=== PATIENT | female | born 1980 | race Two or more races ===

== ENCOUNTER 2019-08-11 00:35 | Emergency (ER) | payer OTHER ==
[~2019-08-11] VITALS: Ht 165.1 cm; Wt 63.5 kg
--- NOTE | 2019-08-11 01:48 | NUR ---
PT CAME TO ER BED 16 C/O OF ANXIETY. PT STATES SHE FEELS LIKE SHE IS HAVING A STROKE. STATES THAT SHE FEELS "REALLY SCARED". BOYFRIEND AT BEDSIDE. AAOX4. NO SOB. AWAITING MD REEVES.
[2019-08-11] MEDS ORDERED: LORAZEPAM INJ 2 MG/ML VIAL ONE (01:54)
--- NOTE | 2019-08-11 01:58 | NUR ---
PATIENT REFUSED ALL MEDICATIONS, AND WANTS TO WAIT FOR A LATER TIME FOR BLOOD DRAW. MD AUGUST. PT STILL WANTS TO PROCEED WITH CT SCAN.
[2019-08-11] MEDS ORDERED: IV NS 0.9% 1,000 ML BAG IV ONE ×2 (02:00→05:00)
[2019-08-11] MEDS ORDERED: LORAZEPAM INJ 2 MG/ML VIAL IVP ONE (02:00)
--- NOTE | 2019-08-11 02:15 | NUR ---
PT SIGNED WAIVER FORM.
[2019-08-11] MEDS ORDERED: LORAZEPAM 1 MG TABLET ONE (02:41)
[2019-08-11] MEDS ORDERED: LORAZEPAM 1 MG TABLET PO ONE (03:00)
[2019-08-11 04:33] LABS: BASOPHILS % (AUTO) 0.3 % (0.0-2.0); HEMATOCRIT 37 % (33-45); HEMOGLOBIN 12.6 g/dL (11.5-14.8); LYMPHOCYTES # (AUTO) 0.9 /CMM (0.8-4.8); LYMPHOCYTES % (AUTO) 11.6 % (20.0-44.0); MEAN CORPUSCULAR HGB CONC 34 g/dl (31.0-36.0); MEAN CORPUSCULAR VOLUME 90 fL (82-100); MONOCYTES # (AUTO) 0.4 /CMM (0.1-1.30); MONOCYTES % (AUTO) 4.9 % (2.0-12.0); NEUTROPHILS # (AUTO) 6.4 /CMM (1.8-8.9); NEUTROPHILS % (AUTO) 83.2 % (43.0-81.0); PLATELET COUNT (AUTO) 285 /CMM (150-450); RED BLOOD CELL COUNT(AUTO) 4.13 MIL/uL (4.0-5.2); WHITE BLOOD COUNT (AUTO) 7.7 K/uL (4.3-11.0)
[2019-08-11 04:43] LABS: ALCOHOL, BLOOD < 3 mg/dL (0-0); MAGNESIUM 2.2 mg/dL (1.8-2.4)
[2019-08-11 04:48] LABS: ALANINE AMINOTRANSFERASE 23 U/L (12-78); ALBUMIN 4.4 g/dL (3.4-5.0); ALKALINE PHOSPHATASE 55 U/L (46-116); ASPARTATE AMINOTRANSFERASE 15 U/L (15-37); BILIRUBIN,DIRECT 0.1 mg/dL (0.0-0.2); BILIRUBIN,TOTAL 0.4 mg/dL (0.2-1.0); CALCIUM, SERUM 9.2 mg/dL (8.5-10.1); CARBON DIOXIDE 27 mmol/L (21-32); CHLORIDE 104 mmol/L (98-107); CREATININE 0.9 mg/dL (0.6-1.3); GLUCOSE 148 mg/dL (74-106); SODIUM SERUM 140 mmol/L (136-145); UREA NITROGEN, BLOOD 12 mg/dL (7-18)
[2019-08-11 05:41] LABS: APPEARANCE,URINE Clear (CLEAR); BILIRUBIN,URINE Negative (NEGATIVE); BLOOD, URINE Moderate Ery/uL (NEGATIVE); COLOR,URINE Yellow (YELLOW); KETONES,URINE Negative (NEGATIVE); LEUKOCYTE ESTERASE ,URINE Negative (NEGATIVE); NITRITE, URINE Negative (NEGATIVE); PROTEIN,URINE Negative (NEGATIVE); UGLUCOSE Negative (NEGATIVE); UROBILINOGEN,URINE 0.2 EU/dL (0.2)
--- NOTE | 2019-08-11 06:11 | NUR ---
Patient discharged to home in stable condition. Written and verbal after care instructions given. Patient verbalizes understanding of instruction.
[2019-08-11 06:18] VITALS: BP 113/72
[2019-08-11 07:07] LABS: BACTERIA,URINE Few /HPF (None Seen); SQUAMOUS EPITHELIAL CELL,UR Rare /HPF (None Seen); WBC,URINE 0-2 /HPF (0-3)
== END 2019-08-11 06:19 | disposition home or self-care (01) ==
LOC: ER 00:39
DX: R42 Dizziness and giddiness (principal); F41.9 Anxiety disorder, unspecified
CPT/HCPCS: 36415; 70450-TC; 71045-TC; 80048-TC; 80076-TC; 80305; 81000-TC; 83605-TC; 83735-TC; 84484-TC; 84703-TC; 85025-TC; 85378-TC; 85730-TC; G0480; J2060; J7030

== ENCOUNTER 2023-03-27 15:09 | Emergency (ER) | payer OTHER ==
[~2023-03-27] VITALS: Ht 165.1 cm; Wt 56.7 kg
[2023-03-27 15:48] VITALS: BP 110/62; TEMP 98.3; O2SAT 98
== END 2023-03-27 15:48 | disposition home or self-care (01) ==
LOC: ER 15:11
DX: F41.9 Anxiety disorder, unspecified (principal); Z53.21 Procedure and treatment not carried out due to patient leaving prior to being seen by health care provider